=== PATIENT | female | born 1970 | race Two or more races ===

== ENCOUNTER 2024-12-11 09:52 | Emergency (ER) | payer MEDICAID, OTHER ==
[~2024-12-11] VITALS: Ht 165.1 cm; Wt 86.0 kg
[2024-12-11 11:07] LABS: Hematocrit 42.1 % (36.0-46.0); Hemoglobin 14.8 g/dL (12.2-16.2); Mean Corpuscular Hemoglobin 28.6 pg (28.0-32.0); Mean Corpuscular Volume 81.2 fL (80.0-100.0); Nucleated Red Blood Cells % 0.1 %
--- NOTE | 2024-12-11 11:40 | ED.PDOC ---
HPI Comments 53 y/o F with history of DM, GERD, HLD, HTN and thyroid disease presents with son for c/c intermittent left-sided chest pain, shortness of breath, and dizziness. 1x week history of pressure-like left-sided chest pain and shortness of breath. Dizziness onset today. Symptoms last seconds to minutes in duration, and occur both with exertion and at rest Denies any palpitations, nausea, vomiting, diaphoresis or edema. Patient states her 2 months ago, and she has been under a lot of stress. 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 Moist mucous membranes.) Neck: Full Range of Motion, Normal Inspection Respiratory: Lungs Clear, No Accessory Muscle Use, No Respiratory Distress, Normal Breath Sounds Cardiovascular: No Edema, No JVD, Regular Rate/Rhythm Breast Exam: Deferred Gastrointestinal: Non Tender, Soft Genitalia: Deferred Pelvic: Deferred Rectal: Deferred Extremities: Normal inspection, Normal range of motion, Non-tender, No pedal edema Neurologic: Alert (Oriented x4), Other (Appears anxious and tearful. No gross focal deficit.) Cerebellar Function: NOT DONE Reflexes: NOT DONE Skin: Dry, Normal Color, Warm Lymphatic: NOT DONE EKG EKG : Comments Sinus rhythm, rate 87, normal intervals, normal axis, normal QRS, lateral ST depression with other nonspecific T changes. Was a procedure done? Was a procedure done?: No CP Differential Dx Differential Diagnosis: Anxiety / Panic Attack Differential Diagnosis: CHF Differential Diagnosis: Angina, Chest Wall Pain, Costochondritis, Esophageal reflux/spasm, Gastritis, Myocardial Infarction, Pericarditis, Pneumonia, Pulmonary Embolus X-Ray, Labs, Meds, VS Vital Signs Date Time Temp Pulse Resp B/P (MAP) Pulse Ox O2 Delivery O2 Flow Rate FiO2 12/11/24 15:08 136/67 12/11/24 14:36 98.6 74 20 142/67 (92) 98 98.6 12/11/24 12:27 98.1 78 18 157/93 (114) 97 98.1 12/11/24 12:27 78 18 97 Room Air 12/11/24 09:59 87 12/11/24 09:54 97.9 90 18 101/64 98 97.9 Lab Test 12/11/24 12:54 12/11/24 12:20 12/11/24 10:22 Range/Units Troponin I High Sensitivity < 3 L < 3 L </=34 ng/L Urine Color Colorless Yellow Urine Clarity Turbid H Clear Urine pH 6.0 5.0-9.0 Urine Specific [place] 1.006 1.001-1.035 Urine Protein Negative Negative Urine Ketones Negative Negative Urine Blood Trace H Negative /uL Urine Nitrite Negative Negative Urine Bilirubin Negative Negative Urine Urobilinogen Normal Negative mg/dL Urine Leukocyte Esterase 2+ Negative /uL Urine RBC 2 0 - 4 /hpf Urine Microscopic WBC 16 H 0-5 /HPF Urine Squamous Epithelial Cells Few <5 /hpf Urine Bacteria Few H None Seen /hpf Urine Glucose Normal Normal mg/dL White Blood Count 4.8 4.4-10.8 10^3/uL Red Blood Count 5.19 4.0-5.20 10^6/uL Hemoglobin 14.8 12.2-16.2 g/dL Hematocrit 42.1 36.0-46.0 % Mean Corpuscular Volume 81.2 80.0-100.0 fL Mean Corpuscular Hemoglobin 28.6 28.0-32.0 pg Mean Corpuscular Hemoglobin Concent 35.2 32.0-36.0 g/dL Red Cell Distribution Width 14.2 11.8-14.3 % Platelet Count 273 140-450 10^3/uL Mean Platelet Volume 7.8 6.9-10.8 fL Neutrophils (%) (Auto) 61.6 37.0-80.0 % Lymphocytes (%) (Auto) 31.5 10.0-50.0 % Monocytes (%) (Auto) 4.9 0.0-12.0 % Eosinophils (%) (Auto) 1.3 0.0-7.0 % Basophils (%) (Auto) 0.7 0.0-2.0 % Neutrophils # (Auto) 2.9 1.6-8.6 10 ^3/uL Lymphocytes # (Auto) 1.5 0.4-5.4 10 ^3/uL Monocytes # (Auto) 0.2 0-1.3 10 ^3/uL Eosinophils # (Auto) 0.1 0-0.8 10 ^3/uL Basophils # (Auto) 0 0-0.2 10 ^3/uL Nucleated Red Blood Cells 0.1 % Sodium Level 139 136-145 mmol/L Potassium Level 3.8 3.5-5.1 mmol/L Chloride Level 102 98-107 mmol/L Carbon Dioxide Level 26 20-31 mmol/L Anion Gap 11 5-15 Blood Urea Nitrogen 7 L 9-23 mg/dL Creatinine 0.70 0.550-1.02 mg/dL Glomerular Filtration Rate Calc 104 >90 mL/min BUN/Creatinine Ratio 10.0 10.0-20.0 Serum Glucose 132 H 74-106 mg/dL Calcium Level 9.7 8.7-10.4 mg/dL B-Type Natriuretic Peptide 28.31 0-100 pg/mL Current Medications Medications (Trade) Dose Ordered Sig/Moshe Route Start Time Stop Time Status Last Admin Ceftriaxone Sodium 50 ml @ 100 mls/hr ONCE ONCE IV 12/11/24 14:15 12/11/24 14:44 DC 12/11/24 14:59 Aspirin 325 mg ONCE ONCE PO 12/11/24 14:15 12/11/24 14:30 DC 12/11/24 14:59 PROCEDURE(s): CXRP - CHEST PORTABLE REASON: cp ORDER NUMBER(s): [id number], ACCESSION NUMBER(s): [id number] XY CHEST PORTABLE, HISTORY: cp COMPARISON: None None TECHNICAL DATA: 1 view of the chest was obtained. FINDINGS: Lines and tubes: None Cardiomediastinal silhouette: normal Pulmonary vasculature: normal Lung expansion: normal Lung airspace: normal Lung interstitium: normal Pleura: normal Pneumothorax: no Bones: Unremarkable Other: no IMPRESSION: No acute intrathoracic abnormality. X-Ray, Labs, Meds, VS Comment 53 y/o F with a history of DM, HLD, HTN, thyroid disease, obesity and GERD complaining of chest pain associated with shortness of breath and dizziness Vitals remarkable for BP 157/93 Exam remarkable for anxious and tearful appearance Rhythm strip independently interpreted by me: Sinus rhythm, rate 90, no ectopy. Chest x-ray unremarkable CBC, basic metabolic panel, BNP and serial troponins unremarkable. UA abnormal consistent with UTI Patient treated with the following in the ED: Aspirin 325 mg p.o., nitro bid 1/2 inch to chest wall, Zofran 4 mg IV, Rocephin 1 g IV On re-evaluation, patient is not having chest pain and is not short of breath. Vitals were stable. Heart score is 6. Plan was to with the patient for Cardiology evaluation and IV antibiotics to treat her UTI, however patient stated she did not want to be hospitalized. She was advised regarding the risks including worsening infection, heart attack, permanent disability or . She expressed understanding and insisted on leaving against medical advice. She was alert, oriented x4 and capable of making informed decisions at the time she signed out. Time of 1ST Reevaluation: 10:50 Reevaluation 1ST: Unchanged Patient Education/Counseling: Diagnosis, Treatment, Need For Follow Up Family Education/Counseling: Diagnosis, Treatment, Need For Follow Up SEPSIS Sepsis Screen Date sepsis recognized/suspect: Dec 11, 2024 Time Sepsis recognized/suspect: 955 Recent Procedure: No On Antibiotic Therapy: No Respiratory Rate >20: No Heart Rate >90: Yes Temp<36 C (96.8 F) or >38.3 C: No SBP <90 or MAP <65 mmHG: No New Acute Mental Status Change: No Is the patient on CPAP, BIPAP,: No SEPSIS EXCLUSION NOTE: Sepsis Exclusion Note: Patient presents with SIRS criteria, but the SIRS response is attributed to [ anxiety], not sepsis. Sepsis bundle is not initiated at this time, due to this reason. Further management will focus on the treatment of the above condition (s). Physician Orders Electrocardigram (12/11/24 09:53) Chest Portable (12/11/24 10:29) Vital Signs Date Time Temp Pulse Resp B/P (MAP) Pulse Ox O2 Delivery O2 Flow Rate FiO2 12/11/24 15:08 136/67 12/11/24 14:36 98.6 74 20 142/67 (92) 98 98.6 8/16/25 12:27 98.1 78 18 157/93 (114) 97 98.1 12/11/24 12:27 78 18 97 Room Air 12/11/24 09:59 87 12/11/24 09:54 97.9 90 18 101/64 98 97.9 Laboratory Tests Test 12/11/24 10:22 White Blood Count 4.8 10^3/uL (4.4-10.8) Medications Medications Dose Ordered Sig/Moshe Route Start Time Stop Time Status Last Admin Dose Admin Aspirin 325 mg ONCE ONCE PO 12/11/24 14:15 12/11/24 14:30 DC 12/11/24 14:59 Ceftriaxone Sodium 50 ml @ 100 mls/hr ONCE ONCE IV 12/11/24 14:15 12/11/24 14:44 DC 12/11/24 14:59 Departure 1 Departure Time of Disposition: 14:00 Impression: Primary Impression: Chest pain with high risk for cardiac etiology Additional Impression: UTI (urinary tract infection) Qualified Codes: N39.0 - Urinary tract infection, site not specified Disposition: LEFT AGAINST MEDICAL ADVICE Condition: Guarded Additional Instructions: Leaving against medical advice. I have prescribed antibiotics to treat your urinary tract infection. Seek follow-up medical attention as soon as possible. e-Prescriptions Cephalexin Monohydrate (Cephalexin) 500 Mg Cap 1 CAP PO QID for 10 Days, #40 CAP Prov: KRYSTINA MONTOYA MD 12/11/24 Discharged With: Relative Critical Care Note Critical Care Time?: No Stability Stability form required: No Heart Score Heart Score: Heart Score Response (Comments) Value History Moderate Suspicious [address]-Deviation 2 Age 45-64 1 Risk Factors >3 or Hx ASHD 2 Troponin Normal limit 0 Total 6 I personally scribed for KRYSTINA MONTOYA MD ([email or web address]) on 12/11/24 at 11:40. Electronically submitted by Anshul Gillespie [email or web address]). KRYSTINA MONTOYA MD Dec 11, 2024 11:40
[2024-12-11 11:43] LABS: Chloride 102 mmol/L (98-107); Potassium 3.8 mmol/L (3.5-5.1); Sodium 139 mmol/L (136-145)
[2024-12-11 11:44] LABS: Anion Gap 11 (5-15); Carbon Dioxide 26 mmol/L (20-31)
[2024-12-11 11:45] LABS: Calcium 9.7 mg/dL (8.7-10.4)
[2024-12-11 11:49] LABS: BUN/Creatinine Ratio 10.0 (10.0-20.0)
[2024-12-11 11:53] LABS: Blood Urea Nitrogen 7 mg/dL (9-23); Glucose 132 mg/dL (74-106)
[2024-12-11 12:41] LABS: Urine Protein, UAD Negative (Negative)
[2024-12-11 14:36] VITALS: BP 142/67; PULSE 74; RESP 20; TEMP 98.6; O2SAT 98
--- NOTE | 2024-12-11 14:37 | DVHHP2 ---
Admitting Diagnosis: chest pain History of Present Illness 53 y/o F with history of DM, GERD, HLD, HTN and thyroid disease presents with son for c/c intermittent left-sided chest pain, shortness of breath, and dizziness. 1x week history of pressure-like left-sided chest pain and shortness of breath. Dizziness onset today. Symptoms last seconds to minutes in duration, and occur both with exertion and at rest Denies any palpitations, nausea, vomiting, diaphoresis or edema. Patient states her 2 months ago, and she has been under a lot of stress. 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 Social History Smoker: Non-Smoker Alcohol: Denies ETOH Use Drugs: Denies Drug Use Lives In: Home Allergies: Coded Allergies: NO KNOWN ALLERGIES (Unverified , 12/11/24) Vital Signs Vital Signs Date Time Temp Pulse Resp B/P (MAP) Pulse Ox O2 Delivery O2 Flow Rate FiO2 12/11/24 12:27 98.1 78 18 157/93 (114) 97 98.1 12/11/24 12:27 Room Air SEPSIS Sepsis Screen Date sepsis recognized/suspect: Dec 11, 2024 Time Sepsis recognized/suspect: 955 Recent Procedure: No On Antibiotic Therapy: No Respiratory Rate >20: No Heart Rate >90: Yes Temp<36 C (96.8 F) or >38.3 C: No SBP <90 or MAP <65 mmHG: No New Acute Mental Status Change: No Is the patient on CPAP, BIPAP,: No Physician Orders Electrocardigram (12/11/24 09:53) Chest Portable (12/11/24 10:29) Ceftriaxone 1gm/50ml D5w (Rocephin) (12/11/24 14:15) Vital Signs Date Time Temp Pulse Resp B/P (MAP) Pulse Ox O2 Delivery O2 Flow Rate FiO2 12/11/24 12:27 98.1 78 18 157/93 (114) 97 98.1 12/11/24 12:27 78 18 97 Room Air 12/11/24 09:59 87 12/11/24 09:54 97.9 90 18 101/64 98 97.9 Laboratory Tests Test 12/11/24 10:22 White Blood Count 4.8 10^3/uL (4.4-10.8) Results Labs Test 12/11/24 12:54 12/11/24 12:20 12/11/24 10:22 Range/Units Troponin I High Sensitivity < 3 L </=34 ng/L Urine Color Colorless Yellow Urine Clarity Turbid H Clear Urine pH 6.0 5.0-9.0 Urine Specific [place] 1.006 1.001-1.035 Urine Protein Negative Negative Urine Ketones Negative Negative Urine Blood Trace H Negative /uL Urine Nitrite Negative Negative Urine Bilirubin Negative Negative Urine Urobilinogen Normal Negative mg/dL Urine Leukocyte Esterase 2+ Negative /uL Urine RBC 2 0 - 4 /hpf Urine Microscopic WBC 16 H 0-5 /HPF Urine Squamous Epithelial Cells Few <5 /hpf Urine Bacteria Few H None Seen /hpf Urine Glucose Normal Normal mg/dL White Blood Count 4.8 4.4-10.8 10^3/uL Red Blood Count 5.19 4.0-5.20 10^6/uL Hemoglobin 14.8 12.2-16.2 g/dL Hematocrit 42.1 36.0-46.0 % Mean Corpuscular Volume 81.2 80.0-100.0 fL Mean Corpuscular Hemoglobin 28.6 28.0-32.0 pg Mean Corpuscular Hemoglobin Concent 35.2 32.0-36.0 g/dL Red Cell Distribution Width 14.2 11.8-14.3 % Platelet Count 273 140-450 10^3/uL Mean Platelet Volume 7.8 6.9-10.8 fL Neutrophils (%) (Auto) 61.6 37.0-80.0 % Lymphocytes (%) (Auto) 31.5 10.0-50.0 % Monocytes (%) (Auto) 4.9 0.0-12.0 % Eosinophils (%) (Auto) 1.3 0.0-7.0 % Basophils (%) (Auto) 0.7 0.0-2.0 % Neutrophils # (Auto) 2.9 1.6-8.6 10 ^3/uL Lymphocytes # (Auto) 1.5 0.4-5.4 10 ^3/uL Monocytes # (Auto) 0.2 0-1.3 10 ^3/uL Eosinophils # (Auto) 0.1 0-0.8 10 ^3/uL Basophils # (Auto) 0 0-0.2 10 ^3/uL Nucleated Red Blood Cells 0.1 % Sodium Level 139 136-145 mmol/L Potassium Level 3.8 3.5-5.1 mmol/L Chloride Level 102 98-107 mmol/L Carbon Dioxide Level 26 20-31 mmol/L Anion Gap 11 5-15 Blood Urea Nitrogen 7 L 9-23 mg/dL Creatinine 0.70 0.550-1.02 mg/dL Glomerular Filtration Rate Calc 104 >90 mL/min BUN/Creatinine Ratio 10.0 10.0-20.0 Serum Glucose 132 H 74-106 mg/dL Calcium Level 9.7 8.7-10.4 mg/dL B-Type Natriuretic Peptide 28.31 0-100 pg/mL ADEEL JARAMILLO MD Dec 11, 2024 14:37
[2024-12-11] MEDS: ONDANSETRON HCL 4 MG/2 ML VIAL IV ONE (14:59)
[2024-12-11] MEDS: cefTRIAXone 1GM/50ML D5W 50 ML IV ONE (14:59)
[2024-12-11] MEDS: NITROGLYCERIN 2% OINT 1GM PKG TD ONE (15:08)
[2024-12-11] MEDS ORDERED: CEPH500C PO (15:57)
--- NOTE | 2024-12-12 05:15 | ECG ---
[facility] Test Date: 2024-12-11 Test Time: 09:59:15 Pat Name: TOBI JOSEPH Department: Room: Gender: F Enrichment Assistant: LARY : 1970 Requested By: MARGARITA THOMAS Order Number: [id number] Reading MD: Bret Rodriguez Measurements Intervals [place] Rate: 87 P: 43 MI: 178 QRS: 26 QRSD: 92 T: -9 QT: 359 QTc: 432 Interpretive Statements Sinus rhythm Consider left atrial enlargement Borderline repolarization abnormality Electronically Signed On 12-13-2024 22:53:32 PDT by Bret Rodriguez Please click the below link to view image of tracing.
== END 2024-12-11 15:57 | disposition left against medical advice (07) ==
LOC: ER 09:52
DX: R07.89 Other chest pain (principal); N39.0 Urinary tract infection, site not specified; E11.9 Type 2 diabetes mellitus without complications; E78.5 Hyperlipidemia, unspecified; I10 Essential (primary) hypertension; K21.9 Gastro-esophageal reflux disease without esophagitis; Z90.710 Acquired absence of both cervix and uterus
CPT/HCPCS: 36415; 71045; 80048; 81001; 83880; 84484; 85025; 93005; 96365; 99285; J0696; J2405